=== PATIENT | female | born 1985 | race Caucasian/White ===

== ENCOUNTER 2018-05-09 21:07 | Emergency (ER) | payer MEDICARE, SELFPAY ==
[2018-05-09] MEDS ORDERED: Lidocaine Viscous Sol 2% 15 ml UD Cup ONE (21:39)
[2018-05-09] MEDS ORDERED: Mag-Al 1200 mg/1200 mg/30 ML UDCUP ONE (21:39)
--- NOTE | 2018-05-09 22:08 | RAD ---
PORTABLE AP CHEST X-RAY 05/09/18 HISTORY: Chest pain. COMPARISON: None available. FINDINGS: The cardiac silhouette and pulmonary vasculature are within normal limits. The lungs are clear. [place] us structures are intact. IMPRESSION: No acute cardiopulmonary process. POS: [id number]
== END 2018-05-09 23:03 | disposition home or self-care (01) ==
LOC: ERS 21:07
DX: R07.89 Other chest pain (principal); E11.9 Type 2 diabetes mellitus without complications; I10 Essential (primary) hypertension; F20.9 Schizophrenia, unspecified; F17.210 Nicotine dependence, cigarettes, uncomplicated
CPT/HCPCS: 71045; 93005